=== PATIENT | male | born 1930 | race Caucasian/White ===

== ENCOUNTER 2019-05-08 14:12 | Inpatient (IN) ==
--- NOTE | 2019-05-08 16:06 | Diag Imaging Result Doc PS360 ---
EXAM: CHEST-PORTABLE HISTORY: AMS TECHNIQUE: Single view COMPARISON: 08/08/2014 FINDINGS: The lungs are well expanded. The heart is not enlarged. Left-sided pacemaker. The vessels are not distended. There are no infiltrates. No effusion identified. Left apical granuloma. IMPRESSION: Negative exam. Electronically signed by Teddy Shaffer 05/08/2019 4:03 PM
[2019-05-08 16:29] LABS: BASO# 0.03 X1000 (0.0-0.2); BASO% 0.6 % (0.0-0.8); EOS# 0.07 X1000 (0.0-0.7); EOS% 1.4 % (0.0-10.0); HEMATOCRIT 45.7 % (42.0-52.0); LYMPH# 1.26 X1000 (1.2-3.4); LYMPH% 25.9 % (20.5-51.1); MCH 30.9 PG (27-31); MCHC 32.8 g/dL (33-37); MONO# 0.52 X1000 (0.11-0.59); MONO% 10.7 % (1.7-9.3); MPV 10.3 FL (7.4-10.4); NEUT# 2.98 X1000 (1.4-6.5); NEUT% 61.4 % (42.2-75.2); PLT 160 X1000 (130-400); RBC 4.86 XMIL (4.7-6.1); RDW 13.2 % (11.5-14.5); WBC 4.86 X1000 (4.8-10.8)
[2019-05-08 16:39] LABS: PROTIME 13.3 Seconds (11.0-16.0)
[2019-05-08 16:58] LABS: PTT 29.5 Seconds (22.3-41.8)
[2019-05-08 17:00] LABS: AGAP 10; ALBUMIN 4.4 g/dL (3.5-5.0); ALKALINE PHOSPHATASE 63 U/L (32-122); BUN 14 mg/dL (8-22); CALCIUM 9.6 mg/dL (8.8-10.2); CHLORIDE 98 mmol/L (98-107); CK PROFILE 61 U/L (24-204); COSMO 277; CREATININE 0.8 mg/dL (0.7-1.2); ESTIMATED GFR > 60; GLUCOSE 222 mg/dL (70-104); GOT 15 U/L (10-34); GPT 15 U/L (10-44); POTASSIUM 4.1 mmol/L (3.5-5.1); SODIUM 135 mmol/L (136-145); TCO2 27 mmol/L (25-35); TOTAL BILIRUBIN 0.31 mg/dL (0.20-1.00); TOTAL PROTEIN 6.6 g/dL (6.3-8.3)
[2019-05-08 17:40] LABS: URINE SOURCE CLEAN CATCH
[2019-05-08 17:48] LABS: BILIRUBIN URINE NEGATIVE (NEGATIVE); BLOOD URINE NEGATIVE (NEGATIVE); COLOR YELLOW; GLUCOSE URINE 300 mg/dL (NEGATIVE); KETONE URINE NEGATIVE (NEGATIVE); LEUKOCYTES URINE NEGATIVE (NEGATIVE); NITRITE URINE NEGATIVE (NEGATIVE); PH URINE 6.5; PROTEIN URINE NEGATIVE (NEGATIVE); SP GRAVITY URINE 1.018; TURBIDITY URINE CLEAR (CLEAR); UROBILINOGEN URINE NORMAL (NORMAL)
[2019-05-08 17:49] LABS: UR EPITHELIAL CELLS <10 /HPF (<10); URINE BACTERIA NEGATIVE /HPF; URINE RBC <10 /HPF (<10); URINE WBC <10 /HPF (<10)
[2019-05-08 17:53] LABS: UR AMPHETAMINES QUAL NONE DETECTED (NONE DETECT); UR BARBITUATES QUAL NONE DETECTED (NONE DETECT); UR BENZODIAZEPIN QUAL NONE DETECTED (NONE DETECT); UR CANNABINOIDS QUAL NONE DETECTED (NONE DETECT); UR COCAINE QUAL NONE DETECTED (NONE DETECT); UR METHADONE QUAL NONE DETECTED (NONE DETECT); UR OPIATES QUAL NONE DETECTED (NONE DETECT); UR OXYCODONE QUAL NONE DETECTED (NONE DETECT); UR PCP QUAL NONE DETECTED (NONE DETECT)
[2019-05-08] MEDS ORDERED: NS 1,000 ML IV PRN (17:55)
--- NOTE | 2019-05-08 18:44 | Diag Imaging Result Doc PS360 ---
EXAM: CT HEAD W/O CONTRAST HISTORY: stroke like symptoms TECHNIQUE: CT head without contrast COMPARISON: 08/08/2014 FINDINGS: No parenchymal hemorrhage. No epidural or subdural hematoma. No subarachnoid hemorrhage. Mild atrophy with chronic microvascular ischemic changes. No mass identified on this noncontrasted exam. No hydrocephalus. No sinus opacification. IMPRESSION: 1.No hemorrhage 2.Mild atrophy with chronic microvascular ischemic changes This exam was performed using automated exposure control, adjustment of mA or kV according to patient size, and/or use of iterative reconstruction technique. Electronically signed by Teddy Shaffer 05/08/2019 6:42 PM
--- NOTE | 2019-05-08 19:07 | PROVIDER DOCUMENTATION ---
This chart was entered by Nadya Wood Scribe, acting as scribe for Marlys Monreal MD. HPI-Neurological Disorder - General Source: patient, family - History of Present Illness-Neuro Severity: reports: moderate Onset/Duration: reports: 4 days ago Timing: reports: still present Context: reports: impaired speech, other (confusion, memory loss). denies: head injury, facial droop, seizure activity Character of Altered Mental Status: reports: confused, other (memory loss) Any recent trauma/injury?: reports: none Character of Deficits: reports: impaired speech New weakness or altered sensation location:: reports: none Cognitive Baseline: alert, oriented x3 Gait Baseline: walks without assistance Associated Symptoms: reports: headache, confusion, slurred speech. denies: fever/chills, seizures Similar Symptoms Previously?: No Recently seen or treated by another doctor?: No <Marlys Monreal - Last Filed: 05/08/19 19:07> <Pina Romero - Last Filed: 05/08/19 20:27> - General Chief Complaint: Headache Stated Complaint: JUST DON'T FEEL GOOD Time Seen by Provider: 05/08/19 17:36 Allergies/Adverse Reactions: Patient Allergies Allergy/AdvReac Type Severity Reaction Status Date / Time No Known Allergies Allergy Verified 05/08/19 18:12 Home Medications: Home Medication List Medication Instructions Recorded Confirmed Last Taken Type LISINOpril [Prinivil] 10 mg PO DAILY 08/08/14 05/08/19 08/07/14 09:00 History Metformin [Glucophage] 500 mg PO BID CC 08/08/14 05/08/19 08/07/14 20:00 History Tamsulosin [Flomax] 0.4 mg PO DAILY 08/08/14 05/08/19 08/07/14 09:00 History Apixaban [Eliquis] 0.5 mg PO DAILY 05/08/19 05/08/19 Unknown History SIMVAstatin [Zocor] 40 mg PO QHS 05/08/19 05/08/19 Unknown History - History of Present Illness-Neuro Nature of Presenting Problem: pt is a 88 yr old male presenting with 4 day complaint of headache, confusion and memory loss, pt reports confusion is better today, family reports pt is at his baseline currently. per family pt went out and fed cow this am and sat down to eat, pt then was watching TV and forgot how to turn it off, pt confused as to the yr but alert to person and place, family reports this is normal. family a lso reports pt had difficulty making complete sentences yesterday but last night was no longer having difficulty (Marlys Monreal) Review of Systems - Adult - REVIEW OF SYSTEMS - ADULT Constitutional: denies: fever, fatique Eyes: reports: no symptoms reported Ears, Nose, Mouth & Throat: reports: no symptoms reported Cardiovascular: denies: chest pain, palpitations, syncope Respiratory: denies: cough, shortness of breath Gastrointestinal: reports: no symptoms reported Genitourinary: reports: no symptoms reported Musculoskeletal: reports: no symptoms reported Integumentary: reports: no symptoms reported Neurological: reports: slurred speech (difficulty speaking/finding words), other (confusion/memory loss) Psychiatric: reports: no symptoms reported Endocrine: reports: no symptoms reported Hematologic/Lymphatic: reports: no symptoms reported Allergic/Immunologic: reports: no symptoms reported All Other Systems: Reviewed and Negative <ShadihenrikMarlys villalta - Last Filed: 05/08/19 19:07> Past History - Adult - PAST MEDICAL HISTORY-ADULT Review of Records: reports: Old Records Reviewed, Nursing Assessment Review, Medications Reviewed, Social history reviewed & non-contributory. Major Childhood Illnesses: reports: denies history Cardiovascular: reports: HTN Respiratory: reports: denies history Gastrointestinal: reports: denies history Obstetrical/Gynecological: reports: denies history Genitourinary: reports: denies history Musculoskeletal: reports: arthritis, chronic pain Neurological: reports: CVA Endocrine/Immune: reports: denies history Other Conditions: reports: denies history - IMMUNIZATION STATUS Childhood Immunizations: UTD Flu Vaccine: See Nurse Assessment - FAMILY HISTORY Family History: reviewed, not pertinent - SOCIAL HISTORY Smoking: non-smoker Substance Use: none/never Living Situation: family <Marlys Monreal - Last Filed: 05/08/19 19:07> Physical Exam- Neurological - Physical Exam-Neuro Initial Vital Signs Reviewed: Yes General Appearance: appears well, alert, no apparent distress Eye Exam: left eye: normal inspection, PERRL HENMT: normocephalic/atraumatic, moist mucous membranes, normal ENT inspection Head Injury: no evidence of injury Neck: non-tender, full range of motion, supple, normal inspection Respiratory: chest non-tender, lungs clear, normal breath sounds, no respiratory distress, no accessory muscle use Cardiovascular: normal peripheral pulses, regular rate, rhythm, no edema Abdominal Exam: normal bowel sounds, non tender, soft Lymphatic: no adenopathy Extremity: normal range of motion, non-tender, normal inspection grill associate Exam: normal hearing, normal speech, PERRL Motor/Sensory: no motor deficit, no sensory deficit, no pronator drift Neurologic: grossly normal, no motor/sensory deficits Integumentary: normal color, normal turgor, warm/dry Psych/Mental Status: other (A&O x2-person/place) - Glascow Coma Scale Best Eye Response: (4) open spontaneously Best Verbal Response: (4) confused conversation Best Motor Response: (6) obeys commands Total Glascow Score: 14 <Marlys Monreal - Last Filed: 05/08/19 19:07> Progress - PLAN OF CARE/RESULTS Result Diagrams: 05/08/19 16:14 05/08/19 16:14 - EKG 1 Time of EKG reading by physician:: 16:06 EKG Read and Signed by:: Marlys Monreal EKG Interpretation (*Must complete 3 of following elements*): Abnormal (left anterior fasicular block, bifasicular block, can not rule out septal infarct-age undetermined) Rate: 63 Rhythm: sinus with 1st degree AV block [place]: normal QRS: RBB, LVH CT Interval: normal - XRAY 1 XRAY Study: Chest ( Signed EXAM: CHEST-PORTABLE HISTORY: AMS TECHNIQUE: Single view COMPARISON: 08/08/2014 FINDINGS: The lungs are well expanded. The heart is not enlarged. Left-sided pacemaker. The vessels are not distended. There are no infiltrates. No effusion identified. Left apical granuloma. IMPRESSION: Negative exam. Electronically signed by Teddy Shaffer 05/08/2019 4:03 PM 05/08/19 3757 Interpreting Physician: Teddy Shaffer MD Dictated Date/Time: 05/08/19 1601 cc: Bianka Liriano; Reymundo Santana MD) - CT/MRI 1 CT Study: Head Impression: Normal (Signed EXAM: CT HEAD W/O CONTRAST HISTORY: stroke like symptoms TECHNIQUE: CT head without contrast COMPARISON: 08/08/2014 FINDINGS: No parenchymal hemorrhage. No epidural or subdural hematoma. No subarachnoid hemorrhage. Mild atrophy with chronic microvascular ischemic changes. No mass identified on this noncontrasted exam. No hydrocephalus. No sinus opacification. IMPRESSION: 1.No hemorrhage 2.Mild atrophy with chronic microvascular ischemic changes This exam was performed using automated exposure control, adjustment of mA or kV according to patient size, and/or use of iterative reconstruction technique. Electronically signed by Teddy Shaffer 05/08/2019 6:42 PM 05/08/19 184 Interpreting Physician: Teddy Shaffer MD Dictated Date/Time: 05/08/191840 cc: Mralys Monreal MD; Reymundo Santana MD) - CHANGE OF SHIFT REPORT (ED Provider) 1 Report Given and Care Transferred to:: dr romero Time of Transfer: 19:00 Items Pending: Labs <Marlys Monreal Abelardo - Last Filed: 05/08/19 19:07> - PLAN OF CARE/RESULTS Result Diagrams: 05/08/19 16:14 05/08/19 16:14 - CONSULTS/PCP/HOSPITALIST Notification #1 *Consult/PCP/Hospitalist*: Dr Walters was in ER and admitted the pt. Did not speak to me Time Discussed: 20:27 Consult Disposition: Admit <Pina Romero - Last Filed: 05/08/19 20:27> - PLAN OF CARE/RESULTS Progress/Plan/Lab Results: Vital Signs - 8 hr 05/08/19 14:38 Temperature 97.5 F L Pulse Rate 67 Respiratory Rate 18 Blood Pressure 187/87 O2 Sat by Pulse Oximetry 96 Laboratory Results - last 24 hr 05/08/19 05/08/19 05/08/19 14:45 16:14 16:14 WBC RBC Hgb Hct MCV MCH MCHC RDW Std Deviation Plt Count MPV Immature Gran % (Auto) Neut % (Auto) Lymph % (Auto) [place] % (Auto) Eos % (Auto) Baso % (Auto) Immature Gran # (Auto) Neut # (Auto) Lymph # (Auto) [place] # (Auto) Eos # (Auto) Baso # (Auto) PT INR PTT (Actin FS) Sodium 135 L Potassium 4.1 Chloride 98 Carbon Dioxide 27 Anion Gap 10 BUN 14 Creatinine 0.8 Estimated GFR/1.73 m2 > 60 BUN/Creatinine Ratio 18 Glucose 222 H POC Glucose 224 H D Calculated Osmolality 277 Calcium 9.6 Total Bilirubin 0.31 AST 15 ALT 15 Alkaline Phosphatase 63 Creatine Kinase 61 Troponin T High Sens Total Protein 6.6 Albumin 4.4 Globulin 2.2 Albumin/Globulin Ratio 2.0 Plasma Lactate 2.2 Urine Source Urine Color Urine Turbidity Urine pH Ur Specific [place] Urine Protein Ur Glucose (Stick) Ur Ketones (Stick) Urine Blood Urine Nitrite Urine Bilirubin Urobilinogen Dipstick Urine Leukocytes Urine WBC (Auto) Urine RBC (Auto) U Epithel Cells (Auto) Urine Bacteria (Auto) Urine Opiates Screen Ur Oxycodone Screen Ur Methadone, Qual Ur Barbiturates Screen Ur Phencyclidine Scrn Ur Amphetamines Screen U Benzodiazepines Scrn Urine Cocaine Screen U Cannabinoids Screen Plasma/Serum Ethyl Alc 05/08/19 05/08/19 05/08/19 16:14 16:14 16:14 WBC 4.86 RBC 4.86 Hgb 15.0 Hct 45.7 MCV 94.0 MCH 30.9 MCHC 32.8 L RDW Std Deviation 13.2 Plt Count 160 MPV 10.3 Immature Gran % (Auto) 0.0 Neut % (Auto) 61.4 Lymph % (Auto) 25.9 [place] % (Auto) 10.7 H Eos % (Auto) 1.4 Baso % (Auto) 0.6 Immature Gran # (Auto) 0.00 Neut # (Auto) 2.98 Lymph # (Auto) 1.26 [place] # (Auto) 0.52 Eos # (Auto) 0.07 Baso # (Auto) 0.03 PT INR PTT (Actin FS) Sodium Potassium Chloride Carbon Dioxide Anion Gap BUN Creatinine Estimated GFR/1.73 m2 BUN/Creatinine Ratio Glucose POC Glucose Calculated Osmolality Calcium Total Bilirubin AST ALT Alkaline Phosphatase Creatine Kinase Troponin T High Sens 19 Total Protein Albumin Globulin Albumin/Globulin Ratio Plasma Lactate Urine Source Urine Color Urine Turbidity Urine pH Ur Specific [place] Urine Protein Ur Glucose (Stick) Ur Ketones (Stick) Urine Blood Urine Nitrite Urine Bilirubin Urobilinogen Dipstick Urine Leukocytes Urine WBC (Auto) Urine RBC (Auto) U Epithel Cells (Auto) Urine Bacteria (Auto) Urine Opiates Screen Ur Oxycodone Screen Ur Methadone, Qual Ur Barbiturates Screen Ur Phencyclidine Scrn Ur Amphetamines Screen U Benzodiazepines Scrn Urine Cocaine Screen U Cannabinoids Screen Plasma/Serum Ethyl Alc 05/08/19 05/08/19 05/08/19 16:14 17:21 17:21 WBC RBC Hgb Hct MCV MCH MCHC RDW Std Deviation Plt Count MPV Immature Gran % (Auto) Neut % (Auto) Lymph % (Auto) [place] % (Auto) Eos % (Auto) Baso % (Auto) Immature Gran # (Auto) Neut # (Auto) Lymph # (Auto) [place] # (Auto) Eos # (Auto) Baso # (Auto) PT 13.3 INR 1.00 PTT (Actin FS) 29.5 Sodium Potassium Chloride Carbon Dioxide Anion Gap BUN Creatinine Estimated GFR/1.73 m2 BUN/Creatinine Ratio Glucose POC Glucose Calculated Osmolality Calcium Total Bilirubin AST ALT Alkaline Phosphatase Creatine Kinase Troponin T High Sens Total Protein Albumin Globulin Albumin/Globulin Ratio Plasma Lactate Urine Source CLEAN CATCH Urine Color YELLOW Urine Turbidity CLEAR Urine pH 6.5 Ur Specific [place] 1.018 Urine Protein NEGATIVE Ur Glucose (Stick) 300 A Ur Ketones (Stick) NEGATIVE Urine Blood NEGATIVE Urine Nitrite NEGATIVE Urine Bilirubin NEGATIVE Urobilinogen Dipstick NORMAL Urine Leukocytes NEGATIVE Urine WBC (Auto) <10 Urine RBC (Auto) <10 U Epithel Cells (Auto) <10 Urine Bacteria (Auto) NEGATIVE Urine Opiates Screen NONE DETECTED Ur Oxycodone Screen NONE DETECTED Ur Methadone, Qual NONE DETECTED Ur Barbiturates Screen NONE DETECTED Ur Phencyclidine Scrn NONE DETECTED Ur Amphetamines Screen NONE DETECTED U Benzodiazepines Scrn NONE DETECTED Urine Cocaine Screen NONE DETECTED U Cannabinoids Screen NONE DETECTED Plasma/Serum Ethyl Alc 05/08/19 18:15 WBC RBC Hgb Hct MCV MCH MCHC RDW Std Deviation Plt Count MPV Immature Gran % (Auto) Neut % (Auto) Lymph % (Auto) [place] % (Auto) Eos % (Auto) Baso % (Auto) Immature Gran # (Auto) Neut # (Auto) Lymph # (Auto) [place] # (Auto) Eos # (Auto) Baso # (Auto) PT INR PTT (Actin FS) Sodium Potassium Chloride Carbon Dioxide Anion Gap BUN Creatinine Estimated GFR/1.73 m2 BUN/Creatinine Ratio Glucose POC Glucose 154 H Calculated Osmolality Calcium Total Bilirubin AST ALT Alkaline Phosphatase Creatine Kinase Troponin T High Sens Total Protein Albumin Globulin Albumin/Globulin Ratio Plasma Lactate Urine Source Urine Color Urine Turbidity Urine pH Ur Specific [place] Urine Protein Ur Glucose (Stick) Ur Ketones (Stick) Urine Blood Urine Nitrite Urine Bilirubin Urobilinogen Dipstick Urine Leukocytes Urine WBC (Auto) Urine RBC (Auto) U Epithel Cells (Auto) Urine Bacteria (Auto) Urine Opiates Screen Ur Oxycodone Screen Ur Methadone, Qual Ur Barbiturates Screen Ur Phencyclidine Scrn Ur Amphetamines Screen U Benzodiazepines Scrn Urine Cocaine Screen U Cannabinoids Screen Plasma/Serum Ethyl Alc Orders Category Date Time Status Admit - [facility] Routine AdmDCTranf 05/08/19 20:09 Active Activity - Up Ad Jenny ORDERED Care 05/08/19 20:09 Active Cardiac Monitoring DIRECTED Care 05/08/19 15:24 Active Cardiac Monitoring DIRECTED Care 05/08/19 17:55 Active Convert to Saline Loc NOW Care 05/08/19 20:09 Active Currently Rec Anticoagulation [QM] ROUTINE Care 05/08/19 20:09 Active DVT/PE Risk Assess/Protocol [QM] ORDERED Care 05/08/19 20:09 Active Intake and Output-Strict ORDERED Care 05/08/19 20:09 Active Oxygen Therapy- ED Nursing DIRECTED Care 05/08/19 15:24 Completed Oxygen Therapy- ED Nursing DIRECTED Care 05/08/19 17:55 Active Resuscitation Status Routine Care 05/08/19 19:42 Ordered Saline Loc NOW Care 05/08/19 15:24 Active Vital Signs Order Q 8-HR ASSESS Care 05/08/19 20:09 Active Z-Document. for Tele Applied ORDERED Care 05/08/19 20:09 Active Diabetic Diet Diet 05/08/19 20:09 Active CHEST-PORTABLE [RAD] Stat Exams 05/08/19 15:[address] HEAD W/O CONTRAST [CT] Stat Exams 05/08/19 17:55 Completed ALCOHOL BLOOD Stat Lab 05/08/19 16:14 Completed CBC WITH ELECTRONIC DIFF [HEME] Stat Lab 05/08/19 16:14 Completed CK PROFILE [SP CHEM] Stat Lab 05/08/19 16:14 Completed COMPREHENSIVE METABOLIC PANEL [CHEM] Stat Lab 05/08/19 16:14 Completed LACTATE, PLASMA [CHEM] Stat Lab 05/08/19 16:14 Completed PROTIME WITH INR [COAG] Stat Lab 05/08/19 16:14 Completed PTT [COAG] Stat Lab 05/08/19 16:14 Completed TROPONIN T HIGH SENSITIVITY Stat Lab 05/08/19 16:14 Completed URINALYSIS [URINALYSIS] Stat Lab 05/08/19 17:21 Completed URINE DRUG SCREEN Stat Lab 05/08/19 17:21 Completed 0.9% Sodium Chloride Inj [Ns] 1,000 ml Med 05/08/19 17:55 Discontinued IV KVO mls/hr Acetaminophen [Tylenol] Med 05/08/19 20:09 Active 650 mg PO Q6H PRN PRN Apixaban [Eliquis] Med 05/08/19 21:00 Ordered 2.5 mg PO BID LISINOpril [Prinivil] Med 05/09/19 09:00 Ordered 20 mg PO DAILY Metformin [Glucophage] Med 05/09/19 08:00 Ordered 500 mg PO BID CC SIMVAstatin [Zocor] Med 05/08/19 21:00 Ordered 40 mg PO QHS Tamsulosin [Flomax] Med 05/09/19 18:00 Ordered 0.4 mg PO DAILY Telemetry [OM.EQ] Routine Oth 05/08/19 20:09 Active Carotid Ultrasound Routine Ther 05/09/19 06:00 Ordered EKG [EKG] Stat Ther 05/08/19 15:24 Ordered EKG [EKG] Stat Ther 05/08/19 17:55 Ordered Echo Spec/Color Doppler Routine Ther 05/09/19 06:00 Ordered Transfer/Admit Order [TRANSFER] Routine Transfer 05/08/19 19:42 Completed Departure <Marlys Monreal - Last Filed: 05/08/19 19:07> - Departure Date of Disposition Decision: 05/08/19 Time of Disposition Decision: 20:25 Certified Medical Emergency: Emergent - Critical Care Note This patient required my direct & personal management of CC.: No <Pina Romero - Last Filed: 05/08/19 20:27> - Departure DIAGNOSIS: TIA (transient ischemic attack) Disposition: ADMITTED INPATIENT 09 Condition: Stable Referrals and Follow-Ups: Reymundo Santana MD [Primary Care Provider] - Attestation - Physician/ HAILEY Attestation Patient care was provided by Advanced Practice Provider:: No The physician spent face to face time with patient:: Yes Advanced Practice Provider documentation review:: Supervising physician onsite and consulted in the evaluation and care of this patient. The physician did have a face to face encounter with the patient. <Marlys Monreal - Last Filed: 05/08/19 19:07> - NIH Stroke Scale NIH Type: Initial Evaluation Level of Consciousness: 0-Alert LOC Questions (ask month and age): 0-Answers Both Correctly Best Gaze (horizontal eye movement): 0-Normal Visual (use finger movement, counting or visual threat): 0-No Visual Loss Facial Palsy (show teeth or raise eyebrows & close eyes tght: 0-Symmetrical Movement Motor Function-left arm: 0-Normal Motor Function-right arm: 0-Normal Motor Function-left le-Normal Motor Function-right le-Normal Limb Ataxia(pzekry-fikx-[id number], or heel to kingsley): 0-No Ataxia Sensory(pin prick to face,arms,trunk,legs-compare side/side): 0-No Ataxia Best Language(name item/read sentence.Ex-Down to Earth): 0-No Aphasia Dysarthria(Pt read words or say words Ex.Mama,Tip-Top,Thanks: 0-Normal Articulation Extinction and Inattention: 0-Normal NIH Total Score: 15 <Marlys Monreal - Last Filed: 05/08/19 19:07> This chart was documented by the indicated scribe, (Nadya Wood, Scribe) and accurately reflects the services I performed and decisions made by me, Marlys Monreal MD, as attested by the provider's signature.
[2019-05-08] MEDS ORDERED: TYLENOL PO PRN (20:09)
--- NOTE | 2019-05-08 20:47 | HISTORY AND PHYSICAL ---
CHIEF COMPLAINT: Two episodes of transient confusion. HISTORY OF PRESENT ILLNESS: Mr. Beebe is an 88-year-old gentleman followed by Dr. Santana for multiple medical problems including hypertension, type 2 diabetes and carotid artery disease. He presented to the emergency room this afternoon with a history of an episode of transient confusion yesterday which lasted 30-40 minutes and another one today. He said yesterday's episode happened after he took his to the beauty shop. After it cleared up, they just decided to stay home. This morning after breakfast he helped his son move some hay to feed their cows. He drove the tractor while his son opened and closed calvillo around him. He came inside to eat lunch and after lunch watched some TV. He got up and was confused and unable to figure out how to turn off the TV. The spell lasted also approximately 40-60 minutes. He was brought to the emergency room and his confusion improved back to his baseline. None of the family that were present during his episodes were at the bedside when I examined him. He relates a previous carotid endarterectomy but is unsure of exactly the date. He sees Dr. Garcia, vascular surgeon at [facility]. He is unsure of the last carotid Doppler. PAST MEDICAL HISTORY: Remarkable for hypertension, type 2 diabetes mellitus, history of a small abdominal aortic aneurysm. SURGICAL HISTORY: The carotid endarterectomy and he also had gamma knife treatment for prostate cancer in 2011 or 2012. He had a pacemaker implanted in 2014. ALLERGIES: No known drug allergies. HOME MEDICATIONS: Eliquis unknown dose daily, lisinopril 10 mg daily, metformin 500 mg b.i.d., simvastatin 40 mg at bedtime, tamsulosin 0.4 mg daily. FAMILY HISTORY: Positive for hypertension. Negative for coronary disease. SOCIAL HISTORY: He is and lives with his although he is her caregiver due to dementia. He retired from [email or web address] many years ago. He does not use alcohol or tobacco. He has 1 daughter and 2 sons. REVIEW OF SYSTEMS: General: No fever, chills, night sweats, weight loss. HEENT: Vision and hearing are adequate without recent changes. Gastrointestinal: Appetite is good. No nausea, vomiting, diarrhea, constipation. Cardiovascular: No history of anginal chest pain or ischemic heart disease. No history of congestive heart failure or valvular heart disease. No recent palpitations or pedal edema. Respiratory: No chronic lung disease, cough or sputum production. Endocrine: Approximately 20 year history of type 2 diabetes. Skin: No rashes or itching. Musculoskeletal: Bilateral hip replacement years ago. Neurologic: Questionable previous TIA with slurred speech and transient right-sided neurologic deficit. PHYSICAL EXAMINATION: VITAL SIGNS: Temperature 97.5, blood pressure 187/87, pulse 67 and regular, respirations 18, O2 saturation 96% on room air. GENERAL APPEARANCE: Alert, cooperative, elderly gentleman with intact recent and remote memory. HEENT: His pupils are equal, round, reactive to light. Extraocular movements are intact. Do not appreciate any facial droop. His hand cycle consultant is equal and strong. NECK: Supple with no carotid bruits, adenopathy or thyromegaly. LUNGS: Clear bilaterally. CARDIAC: Regular rate and rhythm. Questionably paced rhythm on the telemetry. No S3, S4 or murmurs. ABDOMEN: Slightly obese, soft and nontender with active bowel sounds. EXTREMITIES: No cyanosis, clubbing or edema. DATABASE: CBC is within normal limits. Sodium 135. BUN 14. Creatinine 0.8. Glucose 222. Urinalysis negative except for moderate glucose. Urine drug screen is negative. ASSESSMENT: 1. Two episodes of transient confusion typical for transient ischemic attack. He has a history of carotid artery disease and previous endarterectomy and is at risk for further strokes. 2. Hypertension. 3. Type 2 diabetes mellitus. 4. History of prostate cancer. TREATMENT PLAN: We will admit, place under observation on school lunch monitor. We will obtain an echo and carotid Doppler as soon as possible. He will be continued on Eliquis, lisinopril and metformin. cc: Rahat Walters MD
[2019-05-08] MEDS ORDERED: ZOCOR PO SCH (21:00)
[2019-05-08] MEDS: ZOCOR PO SCH (23:14)
[2019-05-08] MEDS: ELIQUIS PO SCH (23:14)
[2019-05-09] MEDS: PRINIVIL PO SCH (10:03)
[2019-05-09] MEDS: GLUCOPHAGE PO SCH ×2 (10:03→17:52)
[2019-05-09] MEDS: ELIQUIS PO SCH ×2 (10:03→20:13)
--- NOTE | 2019-05-09 12:10 | EKG Report ---
Test Performed on : 05/08/2019 4:06:29 PM Test Reason : AMS Blood Pressure : / mmHG Vent. Rate : 063 BPM Atrial Rate : 063 BPM P-R Int : 416 ms QRS Dur : 154 ms QT Int : 462 ms P-R-T Axes : 088 -72 -24 degrees QTc Int : 472 ms Sinus rhythm. with 1st degree AV block. Right bundle branch block Left anterior fascicular block Bifascicular block Moderate voltage criteria for LVH, may be normal variant Cannot rule out Septal infarct (cited on or before 25-JAN-2011) Abnormal ECG When compared with ECG of 09-AUG-2014 06:15, QRS duration has decreased Questionable change in initial forces of Septal leads T wave inversion more evident in Anterior leads Nonspecific T wave abnormality no longer evident in Lateral leads Unconfirmed Result
[2019-05-09] MEDS: FLOMAX PO SCH (18:07)
[2019-05-09] MEDS: ZOCOR PO SCH (20:13)
[2019-05-09] MEDS ORDERED: ZOCOR PO SCH (21:00)
[2019-05-10] MEDS: ELIQUIS PO SCH ×2 (09:54→20:13)
[2019-05-10] MEDS: GLUCOPHAGE PO SCH ×2 (09:54→17:57)
[2019-05-10] MEDS: PRINIVIL PO SCH (09:54)
[2019-05-10] MEDS: FLOMAX PO SCH (09:54)
--- NOTE | 2019-05-10 14:24 | ECHO REPORT ---
ORDER DATE: 05/09/2019 INDICATION: TIA, coronary disease, diabetes. FINDINGS: 1. The right atrium appears normal in size. 2. Mild tricuspid regurgitation. 3. Normal RV size and systolic function. 4. Mild pulmonic insufficiency. 5. Mild left atrial enlargement with a volume index of 30. 6. No mitral prolapse. Mild mitral regurgitation. No mitral stenosis. 7. Normal LV size, end-diastolic dimension of 4.8 cm. Normal wall thicknesses with a posterior and interventricular septal thickness 1.0 cm each. Normal LV systolic function. Estimated EF of 55% with normal wall motion. 8. Aortic valve opens well. It is trileaflet. Mild insufficiency. No stenosis. 9. Aorta appears normal in visualized segments. 10. No pericardial effusion seen. cc: MD Rahat Weston MD Timothy P. Weirich, MD
[2019-05-10] MEDS: ZOCOR PO SCH (20:13)
--- NOTE | 2019-05-11 07:15 | PROGRESS NOTE ---
DATE: 05/09/2019 SUBJECTIVE: Mr. Beebe was admitted to [facility] with a TIA. Speech is still measured, and at times he has difficulty getting his words out. He has no other neurologic deficits. Blood pressure remains well controlled. He denies any chest pain, palpitations, or anginal equivalents. He has had a previous carotid endarterectomy. OBJECTIVE: Vital Signs: He is afebrile. Vital signs are stable. CV: Regular rate and rhythm. Lungs: Clear. Abdomen: Soft, nontender with active bowel sounds. Neurologic: He is alert and oriented to name, place and time. Cranial nerves 2-12 intact grossly. He has normal tone and strength in the upper and lower extremities. Speech is still somewhat delayed. ASSESSMENT AND PLAN: 1. Transient ischemic attack. We will continue Eliquis 2.5 mg twice daily and aggressive blood pressure control. I do not want to drop his blood pressure significantly as to potentially increase the watershed area of a stroke. As long as his systolic blood pressures are in the 150s or less, I do not believe that further medicine changes are indicated. We will continue aggressive lipid management. We will check a carotid ultrasound, as well as a two-dimensional echocardiogram with color Doppler and spectral flow Doppler studies. 2. Hypertension. Blood pressure is stable. We will continue lisinopril 20 mg twice daily. cc: MD Reymundo Vizcarra MD MTDD
--- NOTE | 2019-05-11 07:16 | PROGRESS NOTE ---
DATE: 05/10/2019 SUBJECTIVE: Mr. Beebe was admitted to [facility] with an apparent TIA. He is awake and easily arousable. He is oriented to name, place, and time. Speech is much more fluid. There does not seem to be any delay in getting his words out. He has no other neurologic symptoms. Blood pressure is stable. His blood pressure was 131/59. He denies any chest pain, palpitations, or anginal equivalents. OBJECTIVE: Temperature 97.6 degrees, pulse 62, respiratory rate 19, BP 131/59. CV: Regular rate and rhythm. Lungs: Clear. Abdomen: Soft, nontender, with active bowel sounds. No hepatosplenomegaly. No abdominal bruits. Neurologic: He is alert and oriented to name, place, and time. Cranial nerves 2-12 intact grossly. Speech is fluid. He has normal tone and strength in the upper and lower extremities bilaterally. ASSESSMENT AND PLAN: 1. Suspected transient ischemic attack. Neurologically, he continues to improve as compared to admission. We will continue Eliquis 2.5 mg twice a day. He has had a previous carotid endarterectomy. We will check a carotid ultrasound as well as a 2D echocardiogram with color Doppler and spectral flow Doppler studies. His echocardiogram was grossly normal. Estimated ejection fraction was 55% with no wall motion abnormalities. He had no significant valvular abnormalities. We will continue aggressive lipid management on simvastatin. 2. Hypertension. Blood pressure is stable. We will continue lisinopril 20 mg twice a day. cc: MD Reymundo Vizcarra MD
[2019-05-11] MEDS: PRINIVIL PO SCH (10:13)
[2019-05-11] MEDS: ELIQUIS PO SCH (10:13)
[2019-05-11] MEDS: GLUCOPHAGE PO SCH (10:13)
[2019-05-11] MEDS: FLOMAX PO SCH (10:14)
[2019-05-11 16:09] VITALS: BP 122/85
--- NOTE | 2019-05-12 10:10 | DISCHARGE SUMMARY ---
ADMISSION DATE: 05/08/2019 DISCHARGE DATE: 05/11/2019 DISCHARGE DIAGNOSES: 1. Transient ischemic attack. 2. Hypertension. 3. Hyperlipidemia. 4. Tachybrady syndrome. 5. Status pacer. HISTORY OF PRESENT ILLNESS: This 88-year-old, white male presented with brief episodes of confusion, which were inexplicable and really had no other symptoms associated with them. He describes not being able to figure out how to turn off the TV. The patient was admitted in my absence, and workup was performed, which did not show any elevation of cardiac enzymes. Heart rhythm was grossly normal. No severe EKG changes were noted. Pacer seemed to be functioning fine. He had a CT of the brain, which did not show any acute infarction. He had an echocardiogram, which basically showed normal heart function, slightly reduced ejection fraction commensurate with his age, no gross valvular abnormalities. He had a carotid ultrasound, which showed no significant blockage. He had peripheral arterial studies, which showed no significant blockage. We entertained the possibility of MRI, but his pacemaker made that a non starter. The patient's blood sugar was somewhat fluctuant over his hospitalization, but his last A1c in the office showed good levels of control relative to age, and I would not change any medications based on those averages. I discussed the findings with the patient and his daughter on the day of discharge, and they were eager and desirous of discharge. The patient has instructions to follow up within 2 weeks in my office. cc: Reymundo Santana MD
--- NOTE | 2019-05-15 15:17 | VASCULAR LAB ---
DATE: 05/11/2019 PROCEDURE: Bilateral lower extremity segmental Doppler exam. LAND CLEARER: [place]mon. REQUESTING PHYSICIAN: Dr. Santana. INDICATION: Cold foot. FINDINGS: Brachial pressure on the right is 133, on the left 126. High thigh on the right is 175, on the left noncompressible. Low thigh on the right is 158, on the left 189. Calf on the right is 183, on the left noncompressible. DP on the right is 172, on the left 197. PT on the right is 152, on the left 215. Toe pressure on the right is 70, on the left 76. CONOR on the right is 1.29, on the left 1.62. TBI on the right is 0.53, on the left 0.57. IMPRESSION: Pulsatile flow noted to the level of the toes bilaterally. 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 The CONOR is diminished on the right relative to the left, but again remains elevated. 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 cc: MD Reymundo Gregory MD
--- NOTE | 2019-05-15 19:00 | Carotid Study ---
DATE: 05/09/2019 ROLLER SKATE REPAIRER: Janneth. REQUESTING PHYSICIAN: Rahat Walters MD INDICATIONS: Transient ischemic attack. EXAM COMPARISON: 01/27/2013. FINDINGS: Bilateral carotid artery systems were visualized along their course. The velocities were normal, and I do not see any significant atherosclerotic changes noted with antegrade vertebrals noted. IMPRESSION: No hemodynamically significant lesion noted in the bilateral carotid artery system. cc: MD Rahat Gregory MD Timothy P. Weirich, MD
== END 2019-05-11 17:27 | disposition home or self-care (01) | DRG 69 ==
LOC: ED 14:12 → 3N 21:06
PROVIDERS: ADMIT Internal Medicine; ATTEND Internal Medicine